=== PATIENT | male | born 1975 | race African-American/Black ===

== ENCOUNTER 2019-07-29 00:04 | Emergency (ER) | payer OTHER ==
[~2019-07-29] VITALS: Ht 167.6 cm; Wt 103.6 kg
[2019-07-29] MEDS ORDERED: ATOR40TA75 PO (00:34)
[2019-07-29] MEDS ORDERED: AMLO10TA5 PO (00:35)
[2019-07-29] MEDS ORDERED: ACETAMINOPHEN TAB 650MG DOSE (2X325MG) PO ONE (00:45)
[2019-07-29] MEDS ORDERED: NS 1,000 ML IV ONE (00:45)
[2019-07-29 01:03] LABS: BASO % 0.5 % (0.0-1.0); EOS % 0.5 % (0.0-3.0); HEMATOCRIT 35.7 % (42.0-52.0); HEMOGLOBIN 11.6 g/dl (13.5-17.5); LYMPH # 1.1 10^3/uL (1.5-5.0); LYMPH % 12.6 % (24.0-44.0); MEAN CORPUSCULAR HEMOGLOBIN 29.4 pg (27.0-33.0); MEAN CORPUSCULAR HGB CONC 32.5 g/dl (32.0-36.5); MEAN CORPUSCULAR VOLUME 90.4 fl (80.0-96.0); MONO # 0.9 10^3/uL (0.0-0.8); MONO % 9.9 % (0.0-5.0); NEUTROPHILS # 6.7 10^3/uL (1.5-8.5); PLATELET COUNT, AUTOMATED 314 10^3/uL (150-450); RED BLOOD COUNT 3.95 10^6/uL (4.30-6.10); WHITE BLOOD COUNT 8.8 10^3/uL (4.0-10.0)
[2019-07-29 01:33] LABS: ALBUMIN 3.6 GM/DL (3.2-5.2); ALT/SGPT 32 U/L (12-78); BILIRUBIN,DIRECT 0.1 MG/DL (0.0-0.2); BILIRUBIN,TOTAL 0.3 MG/DL (0.2-1.0); CK-MB VALUE MASS 1.4 NG/ML (<3.6); CPK CREATINE PHOSPHOKINASE 172 U/L (39-308); ETHYL ALCOHOL (ETHANOL) 0.047 % (0.000-0.010); LIPASE 107 U/L (73-393); MB/CK RELATIVE INDEX 0.81 (< OR =4); TOTAL PROTEIN 7.6 GM/DL (6.4-8.2); TROPONIN I < 0.02 NG/ML (< 0.10)
[2019-07-29] MEDS ORDERED: ISOVUE-370 76% 100ML VIAL As Ordered ONE (02:24)
--- NOTE | 2019-07-29 02:50 | REPVR ---
PROCEDURE INFORMATION: Exam: CT Abdomen And Pelvis With Contrast Exam date and time: 07/29/2019 2:33 AM Age: 43 years old Clinical indication: Abdominal pain; Additional info: Luq abd pain TECHNIQUE: Imaging protocol: Computed tomography of the abdomen and pelvis with intravenous contrast. Radiation optimization: All CT scans at this facility use at least one of these dose optimization techniques: automated exposure control; mA and/or kV adjustment per patient size (includes targeted exams where dose is matched to clinical indication); or iterative reconstruction. Contrast material: ISO 370; Contrast volume: 100 ml; Contrast route: IV; COMPARISON: No relevant prior studies available. FINDINGS: Lungs: No suspicious mass or airspace process in the visualized lung bases. Liver: Liver appears normal with no focal abnormality. Gallbladder and bile ducts: Gallbladder is present and shows no evidence of gallstone. Pancreas: Pancreas appears normal. No focal mass or peripancreatic inflammation. Spleen: Spleen appears homogeneous without focal mass. Adrenals: Adrenal glands are normal in appearance. Kidneys and ureters: Kidneys are unremarkable aside from an upper pole 13 mm right renal lesion on image 49, indeterminate density. Stomach and bowel: No evidence of small bowel obstruction. No evidence of acute diverticulitis. Appendix: Normal caliber appendix is identified, with no adjacent inflammation. Intraperitoneal space: No mesenteric or omental mass. No pneumoperitoneum. Vasculature: No aortic aneurysm. Main portal and splenic veins enhance normally. Lymph nodes: No enlarged lymph nodes. Bladder: Urinary bladder appears normal. Reproductive: Prostate gland is normal in size. Bones/joints: Bony structures show no acute fracture or destructive process. Soft tissues: Unremarkable. Other findings: No concerning focal abnormality of the extrinsic soft tissues. IMPRESSION: 1. No acute concerning abnormality to explain clinical symptoms. 2. Indeterminate density 13 mm right renal upper pole lesion medially which could represent a complex cyst. This can be evaluated on outpatient basis with sonography Electronically signed by: Yoni Mistry On 07/29/2019 02:49:49 AM
[2019-07-29 03:54] LABS: AMPHETAMINES LEVEL URINE NEGATIVE (NEGATIVE); BARBITURATES URINE NEGATIVE (NEGATIVE); BENZODIAZEPINES URINE NEGATIVE (NEGATIVE); CANNABINOIDS URINE POSITIVE (NEGATIVE); COCAINE METABOLITE URINE POSITIVE (NEGATIVE); METHADONE URINE NEGATIVE (NEGATIVE); OPIATES URINE NEGATIVE (NEGATIVE); PHENCYCLIDINE URINE NEGATIVE (NEGATIVE)
[2019-07-29 05:54] VITALS: BP 126/58
--- NOTE | 2019-07-29 06:31 | ECGEPIP ---
[facility] - ED Test Date: 2019-07-29 Pat Name: ALVAREZ NIXON Department: Room: - Gender: Male Podiatry Doctor: nidia : 1975 Requested By: CAMDEN Lewis Order Number: [id number] Reading MD: Luis Vasquez Measurements Intervals [place] Rate: 119 P: 43 IN: 165 QRS: 32 QRSD: 94 T: 10 QT: 317 QTc: 447 Interpretive Statements SINUS TACHYCARDIA ABNORMAL RHYTHM ECG NONSPECIFIC ST T WAVE CHANGES DELAYED R WAVE PROGRESSION Electronically Signed on 07-29-2019 6:31:21 EDT by Luis Vasquez
--- NOTE | 2019-07-29 09:46 | ED PDOC ---
Post-Departure Follow-Up certified letter sent to pt re formal read f ct abd/p . needs fu. please obtain pcp name and fax. Luis Iyer MD July 29, 2019 09:46
== END 2019-07-29 05:58 | disposition home or self-care (01) ==
LOC: M ED 00:04 → EDBD 00:04 → EEVIPCON 00:04 → M ED 05:58
DX: R10.84 Generalized abdominal pain (principal); F14.90 Cocaine use, unspecified, uncomplicated; N28.89 Other specified disorders of kidney and ureter; R94.31 Abnormal electrocardiogram [ECG] [EKG]; I10 Essential (primary) hypertension; E11.9 Type 2 diabetes mellitus without complications; E78.5 Hyperlipidemia, unspecified; F17.210 Nicotine dependence, cigarettes, uncomplicated
CPT/HCPCS: 74177; 80047; 80076; 80307; 82550; 82553; 83605; 83690; 85025; 87040; 93005; 93041; 96360; 96361; 99285; G0480; Q9967

== ENCOUNTER 2019-12-29 12:17 | Emergency (ER) | payer OTHER ==
[~2019-12-29] VITALS: Ht 170.2 cm; Wt 106.8 kg
[~2019-12-29 12:17] MED LIST: AMLO1TAB25 PO; ATOR40TA75 PO
--- NOTE | 2019-12-29 14:28 | REPVR ---
PROCEDURE INFORMATION: Exam: XR Right Foot Complete Exam date and time: 12/29/2019 1:47 PM Age: 44 years old Clinical indication: Pain; Foot; Right; Additional info: Pain and swelling to right foot and great toe TECHNIQUE: Imaging protocol: XR Right foot. Views: 3 or more views. COMPARISON: No relevant prior studies available. FINDINGS: Bones/joints: There is a subtle lucent line of the distal end of the middle phalanx 1st digit that could represent a hairline fracture or bony trabecular injury. There is a 1.4 cm round lucent lesion of the distal diaphysis of the 1st metatarsal. This is well-circumscribed and probably representing an enchondroma. I would recommend a follow-up exam in 6 months for re-evaluation of this and to document stability as a precautionary measure. There is a screw and plate device distal fibula. There is very prominent osteophyte formation along the posterior aspect of the talotibial joint. Soft tissues: There is soft tissue swelling at the ankle and proximal foot. IMPRESSION: 1. Subtle lucent line distal end of the middle phalanx 1st digit could be a minimal hairline fracture or bony trabecular injury. 2. 1.4 cm round lucent lesion of the 1st metatarsal is probably an enchondroma but recommend follow-up radiograph in 6 months for re-evaluation of this and to document stability as a precautionary measure. Electronically signed by: Doni Jasmine On 12/29/2019 14:27:16 PM
[2019-12-29 14:35] LABS: BASO # 0.1 10^3/uL (0.0-0.2); BASO % 0.6 % (0.0-1.0); EOS # 0.2 10^3/uL (0.0-0.5); EOS % 2.3 % (0.0-3.0); HEMATOCRIT 35.1 % (42.0-52.0); HEMOGLOBIN 11.6 g/dl (13.5-17.5); LYMPH % 25.8 % (24.0-44.0); MEAN CORPUSCULAR HEMOGLOBIN 30.1 pg (27.0-33.0); MEAN CORPUSCULAR VOLUME 90.9 fl (80.0-96.0); MONO # 0.7 10^3/uL (0.0-0.8); MONO % 9.1 % (0.0-5.0); NEUTROPHILS # 4.9 10^3/uL (1.5-8.5); NEUTROPHILS % 61.8 % (36.0-66.0); PLATELET COUNT, AUTOMATED 281 10^3/uL (150-450); RED BLOOD COUNT 3.86 10^6/uL (4.30-6.10); WHITE BLOOD COUNT 7.8 10^3/uL (4.0-10.0)
[2019-12-29 14:48] LABS: BLOOD UREA NITROGEN 9 MG/DL (7-18); C REACTIVE PROTEIN QUANTITATIV 1.05 MG/DL (0.00-0.30); CARBON DIOXIDE LEVEL 24 MEQ/L (21-32); CHLORIDE LEVEL 104 MEQ/L (98-107); CREATININE FOR GFR 1.01 MG/DL (0.70-1.30); GLOMERULAR FILTRATION RATE > 60.0 (>60); GLUCOSE, FASTING 140 MG/DL (70-100); POTASSIUM SERUM 3.6 MEQ/L (3.5-5.1); SODIUM LEVEL 135 MEQ/L (136-145); URIC ACID 8.2 MG/DL (3.5-7.2)
[2019-12-29 15:06] LABS: ERYTHROCYTE SEDIMENTATION RATE 37 mm/hr (0-15)
[2019-12-29 15:56] VITALS: BP 141/88
--- NOTE | 2019-12-31 07:14 | ED PDOC ---
Post-Departure Follow-Up dr wooten faxed formal report of right foot film fo rfu mlg Luis Vasquez MD Dec 31, 2019 07:14
== END 2019-12-29 15:57 | disposition home or self-care (01) ==
LOC: M ED 12:17
DX: M79.671 Pain in right foot (principal); E11.9 Type 2 diabetes mellitus without complications; I10 Essential (primary) hypertension; F17.200 Nicotine dependence, unspecified, uncomplicated; Z88.6 Allergy status to analgesic agent